=== PATIENT | female | born 1980 | race Asian ===

== ENCOUNTER 2017-04-07 11:16 | Day surgery (SDC) | payer OTHER ==
[2017-04-07] VITALS (11 sets, daily range): BP systolic 86–110; BP diastolic 58–76; PULSE 62–72; RESP 18–22
[~2017-04-07] VITALS: Ht 152.4 cm; Wt 44.5 kg
[~2017-04-07 11:16] MED LIST: LACTATED RINGER'S 1,000 ML IV SCH
[2017-04-07 12:10] LABS: ADD SCAN DIFF NO
[2017-04-07 12:12] LABS: BASOPHIL # 0.1 10^3/ul (0.0-0.1); BASOPHILS % 0.6 % (0.0-2.0); EOSINOPHILS # 0.3 10^3/ul (0.0-0.5); EOSINOPHILS % 3.5 % (0.0-7.0); HEMATOCRIT 40.5 % (37.0-47.0); LYMPHOCYTES # 2.4 10^3/ul (0.8-2.9); LYMPHOCYTES % 28.8 % (15.0-51.0); MEAN CORPUSCULAR HEMOGLOBIN 29.5 pg (29.0-33.0); MEAN CORPUSCULAR HGB CONC 34.6 g/dl (32.0-37.0); MEAN CORPUSCULAR VOLUME 85.4 fl (82.0-101.0); MEAN PLATELET VOLUME 8.8 fl (7.4-10.4); MONOCYTE # 0.5 10^3/ul (0.3-0.9); MONOCYTES % 6.3 % (0.0-11.0); NEUTROPHILS % 60.4 % (39.0-77.0); PLATELET COUNT 302 10^3/UL (140-415); RED BLOOD COUNT 4.74 10^6/ul (4.20-5.40); RED CELL DISTRIBUTION WIDTH 12.1 % (11.5-14.5); WHITE BLOOD COUNT 8.3 10^3/ul (4.8-10.8)
[2017-04-07] MEDS ORDERED: ONDANSETRON 4 MG INJ ONE (13:35)
[2017-04-07] MEDS ORDERED: ROCURONIUM 50 MG INJ ONE (13:35)
[2017-04-07] MEDS ORDERED: OXYTOCIN 10 UNIT INJ ONE ×2 (13:35→13:49)
[2017-04-07] MEDS ORDERED: FENTAnyl 50 MCG/ML VIAL ONE (13:35)
[2017-04-07] MEDS ORDERED: PROPOFOL 20 ML ONE (13:35)
[2017-04-07] MEDS ORDERED: SUCCINYLCHOLINE CHLORIDE 100 MG/5 ML SYG IV ONE (13:35)
[2017-04-07] MEDS ORDERED: METOCLOPRAMIDE 10 MG INJ ONE (13:35)
[2017-04-07] MEDS ORDERED: CEFAZOLIN 1 GM INJ ONE (13:54)
--- NOTE | 2017-04-07 14:14 | OPR ---
Date/Time of Note Date/Time of Note DATE: 04/07/17 TIME: 14:12 Operative Report Preoperative Diagnosis Missed Postoperative Diagnosis Same Operation/Procedure Performed Dilation and Curettage Surgeon: TED CAREY MD Anesthesia: general Estimated Blood Loss: 10 - 50 ml's Specimens Products of Conception Complications: None TED CAREY MD Apr 07, 2017 14:14
[2017-04-07] MEDS ORDERED: IBUPROFEN 600 MG TAB PO PRN (14:30)
[2017-04-07] MEDS ORDERED: ONDANSETRON 4 MG INJ IV PRN (14:30)
--- NOTE | 2017-04-07 17:55 | PREOPHP ---
DATE OF ADMISSION: 04/07/2017 HISTORY OF PRESENT ILLNESS: A 36-year-old female, 2, para 1, is admitted with history of missed . PAST MEDICAL HISTORY: Unremarkable. PAST SURGICAL HISTORY: Unremarkable. ALLERGIES: NO KNOWN ALLERGIES. FAMILY HISTORY: Noncontributory. PHYSICAL EXAMINATION: VITAL SIGNS: Patient is afebrile. Vital signs stable. CHEST: Within normal limits. ABDOMEN: Soft, nontender, nondistended. PELVIC: Cervix is closed. NEUROLOGIC: Within normal limits. IMPRESSION: Missed . PLAN: Dilation and curettage. The risks, benefits, and options of procedure were explained to the patient. The patient seemed to understand and gave informed consent for the procedure. DISPOSITION: . Dictated By: Boo Regalado MD /[email or web address] /Document#: [id number]
--- NOTE | 2017-04-07 19:08 | RADRPT ---
Vent Rate: 78 bpm RR Interval: 0 msec MD Interval: 150 msec QRS Duration: 72 msec QT Interval: 400 msec QTC Interval: 456 msec P-R-T [place]: 75 - 75 - 53 degrees Normal sinus rhythm Normal ECG Electronically Signed By: Cain Dupree [id number]
--- NOTE | 2017-04-10 04:46 | OPR ---
DATE OF OPERATION: 04/07/2017 PREOPERATIVE DIAGNOSIS: Missed . POSTOPERATIVE DIAGNOSIS: Missed . OPERATION PERFORMED: Dilation and curettage. SURGEON: Boo Regalado MD. SALES [employer]OR TEAM LEADER: Chas Sevilla MD. ANESTHESIA: General. OPERATIVE PROCEDURE: The patient was taken to the operating room and placed on the operating table in the supine position. After adequate general anesthesia was given the patient was placed in the dorsal lithotomy position. The abdomen was prepped and draped in the usual sterile fashion. A weighted speculum was placed inside the vagina. A tenaculum was used to grasp the cervix. Using cervical dilators the cervical os was dilated to size 8. A size 8 cannula was placed inside the cervical canal, and using suction machine the presence of conception [____] from the uterine cavity. Next a sharp curette was used to performed [____]. After the uterine cavity was assured to be empty all the instruments were removed. Adequate hemostasis was assured. The patient tolerated the procedure well. The patient was awakened from anesthesia and transferred to the recovery room in stable condition. The estimated blood loss was 50 mL. All counts were correct. Dictated By: Boo Regalado MD /[email or web address] /Document#: [id number]
== END 2017-04-07 16:40 | disposition home or self-care (01) ==
LOC: SDS 11:16
PROVIDERS: ATTEND Obstetrics & Gynecology
DX: O02.1 Missed abortion (principal)
CPT/HCPCS: 59820; 85025; 86850; 86900; 86901; 88305; 93005; J0690; J2405; J2590; J2765; J3010; J7999